=== PATIENT | male | born 1930 | race Caucasian/White ===

== ENCOUNTER 2017-09-12 13:29 | Inpatient (IN) | payer BC, OTHER ==
[~2017-09-12] VITALS: Ht 167.6 cm; Wt 78.9 kg
[2017-09-12 13:31] VITALS: BP 161/88
[2017-09-12] MEDS ORDERED: ORE25 PO (13:40)
--- NOTE | 2017-09-12 13:50 | NUR ---
87Y/M C/O RETAINING WATER IN BILATERAL LEGS AND ABD FOR 7-8 DAYS. VSS; PATIENT POSITIONED FOR COMFORT; HOB ELEVATED; BEDRAILS UP X1; BED DOWN. ER MD MADE AWARE OF PT STATUS.
--- NOTE | 2017-09-12 14:00 | NUR ---
Patient being evaluated by physician at bedside.
[2017-09-12 14:31] LABS: HEMATOCRIT 39.8 % (36-52); HEMOGLOBIN 12.8 g/dL (12.0-18.0); MEAN CORPUSCULAR HEMOGLOBIN 25 pg (27-31); MEAN CORPUSCULAR HGB CONC 32 g/dL (33-37); MEAN CORPUSCULAR VOLUME 78.4 fL (80-94); PLATELET COUNT (AUTO) 405 K/uL (140-450); RED BLOOD CELL COUNT(AUTO) 5.08 MIL/uL (4.20-6.10); RED CELL DISTRIBUTION WIDTH 17.7 % (11.6-13.7)
[2017-09-12 14:46] LABS: ANION GAP 10.2 (8-16); CARBON DIOXIDE 31.1 mmol/L (21-32); CHLORIDE 102 mmol/L (98-107); GLUCOSE 96 mg/dL (74-106); POTASSIUM 3.3 mmol/L (3.5-5.1); SODIUM SERUM 140 mmol/L (136-145); UREA NITROGEN, BLOOD 18 mg/dL (7-18)
[2017-09-12 14:47] LABS: EOSINOPHILS % (MANUAL) 4 % (0-4); LYMPHOCYTES % (MANUAL) 18 % (20-46); MONOCYTES % (MANUAL) 11 % (5-12)
[2017-09-12 14:52] LABS: ALBUMIN 2.5 g/dL (3.4-5.0); ASPARTATE AMINOTRANSFERASE 51 U/L (15-37); TOTAL BILIRUBIN 0.8 mg/dL (0.0-1.0)
[2017-09-12 15:00] LABS: PROTHROMBIN TIME 12.4 secs (10.8-13.4)
[2017-09-12 15:18] LABS: APPEARANCE,URINE CLEAR (CLEAR); BLOOD, URINE NEGATIVE (NEGATIVE); COLOR,URINE YELLOW (YELLOW); LEUKOCYTE ESTERASE ,URINE NEGATIVE (NEGATIVE); NITRITE, URINE NEGATIVE (NEGATIVE); UGLUCOSE NEGATIVE (NEGATIVE)
[2017-09-12 15:26] LABS: BILIRUBIN,URINE NEGATIVE (NEGATIVE)
[2017-09-12] MEDS ORDERED: ACETAMINOPHEN 325 MG TAB PO PRN (16:40)
[2017-09-12] MEDS ORDERED: ONDANSETRON 4 MG/2 ML VIAL IVP PRN (16:40)
[2017-09-12] MEDS ORDERED: MORPHINE SULFATE 4 MG/ML SYR IVP PRN ×2 (16:40)
--- NOTE | 2017-09-12 17:02 | NUR ---
Patient will be admitted to care of dr evans. Admited to med surg . Will go to room 113. Belongings list completed. Report to [facility].
--- NOTE | 2017-09-12 17:15 | NUR ---
RECEIVED PT ON UNIT VIA [facility]. PT IS AAOX4, AMBULATORY, PT HAS IV ON THE LEFT FA, PATENT, INTACT, FLUSHING WELL, NO S/S OF RESPIRATORY DISTRESS OR DISCOMFORT NOTED, PT HAS BILATERAL LOWER EXT. NON PITTING EDEMA, COLOSTOMY BAG ON LEFT LOWER QUADRANT, ERYTHEMA NOTED UNDER THE COLOSTOMY BAG, ORIENTED PT TO ROOM, DISCUSSED PLAN OF CARE WITH PT, PT VERBALIZED UNDERSTANDING, SAFETY/FALL PRECAUTIONS ARE IN PLACE, CALL LIGHT IS WITHIN REACH, WILL CONTINUE TO MONITOR.
[2017-09-12 17:20] VITALS: BP 115/67
--- NOTE | 2017-09-12 19:07 | NUR ---
ENDORSED PT TO ADMINISTRATIVE ASSISTANT COORDINATOR NURSE FOR CONTINUITY OF CARE. PT STABLE AT THIS TIME.
--- NOTE | 2017-09-12 19:08 | NUR ---
RECD. RESTING IN BED, AWAKE, A/OX4. JORDANIAN SPEAKING BUT ABLE TO UNDERSTAND AND SPEAK SOME KHMER. RESPIRATION EVEN AND UNLABORED. NOTED SKIN TEAR ON THE RIGHT FOREARM. IV SALINE LOCK G 20 AT THE LEFT AC G20, PATENT AND INTACT. ABDOMEN MODERATE DISTENDED, WITH POSITIVE BOWEL SOUNDS ON ALL QUADRANTS. COLOSTOMY BAG ON THE LEFT LOWER QUADRANT, WITH GAS AND NO STOOL NOTED. SAFETY MEASURES ENFORCED. BED ON ALARM. INSTRUCTED TO CALL NURSE WHEN NEEDING HELP. CALL LIGHT IN REACH.
--- NOTE | 2017-09-12 19:08 | NUR ---
Patient's Plan of Care was discussed and reviewed with CHASE: NIRU
[2017-09-12 20:00] VITALS: BP 126/62
[2017-09-12] MEDS ORDERED: POTASSIUM CHLORIDE 10 MEQ TABER PO SCH (21:00)
--- NOTE | 2017-09-12 21:27 | NUR ---
K LEVEL, 3.3. MEDICATED WITH K DUR 40 MEQ ORDERED.
--- NOTE | 2017-09-12 21:45 | NUR ---
CLEANSE SKIN TEAR WITH NS, PAT DRY WITH GAUZE, APPLIED TRANSPARENT DRESSING. MADE PATIENT COMFORTABLE IN BED, WITH PILLOWS AND A WARM BLANKET.
--- NOTE | 2017-09-12 22:30 | NUR ---
SLEEPING COMFORTABLY IN BED.
[2017-09-13] VITALS: BP 128/69
--- NOTE | 2017-09-13 | NUR ---
STILL SLEEPING COMFORTABLY,NO COMPLAINT OF PAIN, 0/10.
[2017-09-13 04:00] VITALS: BP 110/68
--- NOTE | 2017-09-13 04:00 | NUR ---
VS STABLE. AMBULATED TWICE TO BR TO VOID, GAIT STEADY.
--- NOTE | 2017-09-13 06:00 | NUR ---
APPLIED BILATERAL LEG SEQUENTIALS.
[2017-09-13 06:54] LABS: BASOPHILS # (AUTO) 0.1 K/uL (0.00-0.22); BASOPHILS % (AUTO) 0.8 % (0.0-2.0); EOSINOPHILS # (AUTO) 0.4 K/uL (0-0.4); EOSINOPHILS % (AUTO) 4.8 % (0.0-4.0); HEMATOCRIT 37.4 % (36-52); LYMPHOCYTES % (AUTO) 12.4 % (20.5-51.1); MEAN CORPUSCULAR HEMOGLOBIN 25 pg (27-31); MEAN CORPUSCULAR HGB CONC 32 g/dL (33-37); MEAN CORPUSCULAR VOLUME 78.9 fL (80-94); MONOCYTES # (AUTO) 1.2 K/uL (0.8-1.0); MONOCYTES % (AUTO) 14.6 % (1.7-9.3); NEUTROPHILS # (AUTO) 5.7 K/uL (1.8-7.7); NEUTROPHILS % (AUTO) 67.4 % (42.2-75.2); PLATELET COUNT (AUTO) 371 K/uL (140-450); RED BLOOD CELL COUNT(AUTO) 4.75 MIL/uL (4.20-6.10); RED CELL DISTRIBUTION WIDTH 17.7 % (11.6-13.7); WHITE BLOOD COUNT (AUTO) 8.4 K/uL (4.8-10.8)
[2017-09-13 07:22] LABS: ALBUMIN 2.2 g/dL (3.4-5.0); ANION GAP 9.5 (8-16); ASPARTATE AMINOTRANSFERASE 51 U/L (15-37); CARBON DIOXIDE 30.2 mmol/L (21-32); CHLORIDE 104 mmol/L (98-107); CREATININE 0.8 mg/dL (0.7-1.3); GLUCOSE 96 mg/dL (74-106); POTASSIUM 3.7 mmol/L (3.5-5.1); SODIUM SERUM 140 mmol/L (136-145); TOTAL BILIRUBIN 0.7 mg/dL (0.0-1.0); UREA NITROGEN, BLOOD 17 mg/dL (7-18)
--- NOTE | 2017-09-13 07:59 | NUR ---
Patient's Plan of Care was discussed and reviewed with CHASE: HAIDER.
[2017-09-13 08:00] VITALS: BP 152/68
--- NOTE | 2017-09-13 08:00 | NUR ---
PATIENT IN BED RESTING QUIETLY. VITAL SIGNS TAKEN AND ARE WNL. NO C/O AT THIS TIME.
--- NOTE | 2017-09-13 09:06 | NUR ---
PATIENT HAS BEEN SCREENED AND CATEGORIZED MODERATE NUTRITION RISK. PATIENT WILL BE SEEN WITHIN 3-5 DAYS OF ADMISSION. 09/15/17 - 09/17/[address]
[2017-09-13] MEDS: HYDROCHLOROTHIAZIDE 25 MG TAB PO SCH (09:31)
--- NOTE | 2017-09-13 11:00 | NUR ---
PATIENT HAS FAMILY MEMBER AT BEDSIDE. PATIENT DENIES PAIN AT THIS TIME.
--- NOTE | 2017-09-13 13:00 | NUR ---
FAMILY MEMBER CONTINUES TO VISIT AT BEDSIDE. PATIENT DENIES ANY PAIN OR DISCOMFORT.
--- NOTE | 2017-09-13 14:12 | NUR ---
FAXED INITIAL REVIEW TO [facility] [phone] PHONE [phone] [facility] [phone] PHONE [phone] X PALAK Parks
[2017-09-13 16:00] VITALS: BP 125/80
--- NOTE | 2017-09-13 16:00 | NUR ---
VITAL SIGNS WITHIN NORMAL LIMITS. NO S/S OF RESPIRATORY DISTRESS. FAMILY CONTINUES AT BEDSIDE.
--- NOTE | 2017-09-13 18:43 | NUR ---
US GUIDED PARACENTESIS SCHEDULED FOR 09/14/2017 @ 1100.
--- NOTE | 2017-09-13 19:30 | NUR ---
ASSUMED CARE OF PATIENT, AWAKE, ALERT AND ORIENTED. NO COMPLAINS. CALL LIGHT WITHIN REACH.
--- NOTE | 2017-09-13 20:00 | NUR ---
PLAN OF CARE DISCUSSED WITH PATIENT AND FAMILY MEMBER, VERBALIZED UNDERSTANDING WELL. CARE BOARD UPDATE. CALL LIGHT WITHIN REACH.
[2017-09-13 23:38] VITALS: BP 125/59
--- NOTE | 2017-09-13 23:55 | NUR ---
SLEEPING WELL, EASILY AROUSABLE. VITAL SIGNS STABLE. AFEBRILE. CALL LIGHT WITHIN REACH.
[2017-09-14 07:10] LABS: BASOPHILS # (AUTO) 0.1 K/uL (0.00-0.22); BASOPHILS % (AUTO) 0.8 % (0.0-2.0); EOSINOPHILS # (AUTO) 0.4 K/uL (0-0.4); EOSINOPHILS % (AUTO) 4.5 % (0.0-4.0); HEMATOCRIT 35.4 % (36-52); HEMOGLOBIN 11.3 g/dL (12.0-18.0); LYMPHOCYTES # (AUTO) 0.9 K/uL (2.0-11.5); LYMPHOCYTES % (AUTO) 11.5 % (20.5-51.1); MEAN CORPUSCULAR HEMOGLOBIN 25 pg (27-31); MEAN CORPUSCULAR HGB CONC 32 g/dL (33-37); MEAN CORPUSCULAR VOLUME 78.6 fL (80-94); MONOCYTES % (AUTO) 12.7 % (1.7-9.3); NEUTROPHILS # (AUTO) 5.6 K/uL (1.8-7.7); NEUTROPHILS % (AUTO) 70.5 % (42.2-75.2); PLATELET COUNT (AUTO) 365 K/uL (140-450); RED CELL DISTRIBUTION WIDTH 17.2 % (11.6-13.7)
--- NOTE | 2017-09-14 07:28 | NUR ---
ENDORSED CARE AT BEDSIDE WITH ERICA HINES, PATIENT IN STABLE CONDITION.
--- NOTE | 2017-09-14 07:45 | NUR ---
REPORT RECEIVED FROM MEDICINE AIDE. PT APPEARS TO BE IN NO DISTRESS. COLOSTOMY INTACT. SKIN INTACT. PT IS NOT IN PAIN. WILL CONTINUE TO MONITOR.
[2017-09-14 07:59] LABS: ANION GAP 7.5 (8-16); ASPARTATE AMINOTRANSFERASE 44 U/L (15-37); CARBON DIOXIDE 31.1 mmol/L (21-32); CHLORIDE 103 mmol/L (98-107); CREATININE 0.9 mg/dL (0.7-1.3); GLUCOSE 91 mg/dL (74-106); POTASSIUM 3.6 mmol/L (3.5-5.1); SODIUM SERUM 138 mmol/L (136-145); TOTAL BILIRUBIN 0.5 mg/dL (0.0-1.0); UREA NITROGEN, BLOOD 16 mg/dL (7-18)
[2017-09-14 08:00] VITALS: BP 128/73
[2017-09-14] MEDS: HYDROCHLOROTHIAZIDE 25 MG TAB PO SCH (08:32)
--- NOTE | 2017-09-14 08:40 | NUR ---
MORNING MEDS GIVEN. PT TOLERATED WELL. PT WANTS TO SHOWER. PHYSICAL THERAPY AT BEDSIDE. WILL ASSIST WITH SHOWER WHEN CLEARED BY PT.
[2017-09-14] MEDS ORDERED: FUROSEMIDE 20 MG/2 ML VIAL IVP SCH (09:00)
[2017-09-14 10:51] VITALS: BP 147/80
--- NOTE | 2017-09-14 11:02 | NUR ---
DR MENDOZA AT BEDSIDE FOR ULTRASOUND GUIDED PARACENTHESIS
[2017-09-14 11:40] VITALS: BP 128/80
--- NOTE | 2017-09-14 11:40 | NUR ---
PARACENTESIS COMPLETED. 3300ML TAKEN OUT. SPECIMEN SENT TO LAB. PT TOLERATED WELL. VITALS STABLE. AT BEDSIDE. WILL CONTINUE TO MONITOR.
--- NOTE | 2017-09-14 13:58 | NUR ---
PT IS LAYING IN BED WATCHING TV. IS AT BEDSIDE. PT IS NOT IN ANY DISTRESS. WILL CONTINUE TO MONITOR.
--- NOTE | 2017-09-14 14:45 | NUR ---
DISCHARGE INSTRUCTION GIVEN AND EXPLAINED TO PT AND , PT VERBALIZED FULLL UNDERSTANDING, IV DC'D, CATH TIP INTACT, BLEEDING CONTROLLED, PT UP OUT OF BED WITHOUT PROBLEM, AMBULATES WITH STEADY GAIT, DC HOME NOW WITH . Addendum: 09/14/17 at 1724 by Rosa Barksdale RN PT WAS DISCHARGED AT 1544
--- NOTE | 2017-09-14 15:22 | NUR ---
CM NOTE FAXED INITIAL REVIEW TO [facility] [phone] PHONE [phone] FAXED INITIAL REVIEW TO [facility] ([facility]) [phone] PHONE [phone]
--- NOTE | 2017-09-14 15:38 | NUR ---
09/14/17 RD INITIAL ASSESSMENT COMPLETED PLEASE REFER TO NUTRITION ASSESSMENT UNDER CARE ACTIVITY FOR ESTIMATED NUTRITIONAL NEEDS. 1. CONTINUE NA 2G DIET TOLERATED 2. PROVIDED PT AND PT FAMILY WITH NA 2G DIET EDUCATION 3. RD TO FOLLOW-UP 5-7 DAYS, LOW RISK ALAN EPPS, ESSENCE
== END 2017-09-14 15:45 | disposition home or self-care (01) | DRG 374 ==
LOC: MED 13:29 → MTU 16:41
PROVIDERS: ADMIT Hospitalist; ATTEND Hospitalist
PROC: 0W9G3ZZ Drainage of Peritoneal Cavity, Percutaneous Approach (ICD-10-PCS; principal; 2017-09-14)
DX: C18.9 Malignant neoplasm of colon, unspecified (principal); E43 Unspecified severe protein-calorie malnutrition; R18.0 Malignant ascites; C78.00 Secondary malignant neoplasm of unspecified lung; E88.09 Other disorders of plasma-protein metabolism, not elsewhere classified; Z79.899 Other long term (current) drug therapy; Z90.49 Acquired absence of other specified parts of digestive tract; Z93.3 Colostomy status; Z87.891 Personal history of nicotine dependence
CPT/HCPCS: 36415; 49083; 71045; 76705; 80053; 81003; 82945; 83605; 84157; 84484; 85025; 85610; 85730; 87040; 87070; 87075; 87081; 87205; 89051; 93005; 97140; 99285; J1940; J2001; Q0092

== ENCOUNTER 2017-10-06 11:38 | Inpatient (IN) | payer OTHER ==
[~2017-10-06] VITALS: Ht 167.6 cm; Wt 77.5 kg
[~2017-10-06 11:38] MED LIST: ORE25 PO
[2017-10-06 11:50] VITALS: BP 137/81
--- NOTE | 2017-10-06 11:52 | NUR ---
PT WHEEL CHAIR ASSISTED TO BED 7
--- NOTE | 2017-10-06 11:55 | NUR ---
87Y/M BIB FAMILY WITH C/O ABDOMINAL FLUID RETENTION X 2 WKS; COLOSTOMY IN PLACE X 11 MONTHS D/T COLON CA; DENIES NVD OR PAIN. AAOX4 WITH EVEN AND STEADY GAIT;VSS; PATIENT POSITIONED FOR COMFORT; HOB ELEVATED; BEDRAILS UP X2; BED DOWN. ER MD MADE AWARE OF PT STATUS.
--- NOTE | 2017-10-06 13:00 | NUR ---
Patient appears to be resting comfortably in bed. Vital Signs within normal limits.
[2017-10-06] MEDS ORDERED: FUROSEMIDE 40 MG/4 ML VIAL IVP ONE (13:10)
[2017-10-06 14:22] LABS: BASOPHILS # (AUTO) 0.1 K/uL (0.00-0.22); BASOPHILS % (AUTO) 0.7 % (0.0-2.0); EOSINOPHILS # (AUTO) 0.1 K/uL (0-0.4); EOSINOPHILS % (AUTO) 0.8 % (0.0-4.0); HEMATOCRIT 42.9 % (36-52); HEMOGLOBIN 13.5 g/dL (12.0-18.0); LYMPHOCYTES # (AUTO) 0.9 K/uL (2.0-11.5); LYMPHOCYTES % (AUTO) 6.6 % (20.5-51.1); MEAN CORPUSCULAR HEMOGLOBIN 24 pg (27-31); MEAN CORPUSCULAR HGB CONC 31 g/dL (33-37); MEAN CORPUSCULAR VOLUME 77.4 fL (80-94); MONOCYTES # (AUTO) 1.2 K/uL (0.8-1.0); MONOCYTES % (AUTO) 8.7 % (1.7-9.3); NEUTROPHILS # (AUTO) 11.8 K/uL (1.8-7.7); NEUTROPHILS % (AUTO) 83.2 % (42.2-75.2); PLATELET COUNT (AUTO) 458 K/uL (140-450); RED BLOOD CELL COUNT(AUTO) 5.55 MIL/uL (4.20-6.10); WHITE BLOOD COUNT (AUTO) 14.1 K/uL (4.8-10.8)
[2017-10-06 14:37] LABS: APPEARANCE,URINE CLEAR (CLEAR); BILIRUBIN,URINE NEGATIVE (NEGATIVE); BLOOD, URINE NEGATIVE (NEGATIVE); COLOR,URINE YELLOW (YELLOW); LEUKOCYTE ESTERASE ,URINE NEGATIVE (NEGATIVE); NITRITE, URINE NEGATIVE (NEGATIVE); UGLUCOSE NEGATIVE (NEGATIVE)
[2017-10-06 14:39] LABS: ANION GAP 10.1 (8-16); CARBON DIOXIDE 30.7 mmol/L (21-32); CHLORIDE 100 mmol/L (98-107); CREATININE 1.2 mg/dL (0.7-1.3); GLUCOSE 95 mg/dL (74-106); POTASSIUM 3.8 mmol/L (3.5-5.1); SODIUM SERUM 137 mmol/L (136-145); UREA NITROGEN, BLOOD 21 mg/dL (7-18)
[2017-10-06 14:45] LABS: ALBUMIN 2.3 g/dL (3.4-5.0); ASPARTATE AMINOTRANSFERASE 48 U/L (15-37); LIPASE 129 U/L (73-393); TOTAL BILIRUBIN 0.6 mg/dL (0.0-1.0)
[2017-10-06] MEDS ORDERED: LORazepam 2 MG/ML VIAL IVP PRN (15:00)
[2017-10-06] MEDS ORDERED: HYDROcodone/APAP 5/325 MG 1 TAB TAB PO PRN (15:00)
[2017-10-06] MEDS ORDERED: ACETAMINOPHEN 325 MG TAB PO PRN (15:00)
[2017-10-06] MEDS ORDERED: ONDANSETRON 4 MG/2 ML VIAL IVP PRN (15:00)
--- NOTE | 2017-10-06 15:30 | NUR ---
PATIENT WAS TRANSFERRED FROM ER. REPORT WAS GIVEN AT BEDSIDE. 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 PATIENT AWAKE, ALERT. RESPIRATION EVEN, UNLABOR ON ROOM AIR. SKIN DRY AND WARM. IV PATENT AND INTACT. COLOSTOMY BAG IS CLEAN AND INTACT. DENIED PAIN, SOB, N/V AT THIS TIME. PATIENT WAS ORIENTED WITH ROOM, STAFF, AND CALL LIGHT. PLAN OF CARE WAS DISCUSSED WITH PATIENT. BED AT LOW POSITION, SIDE RAILS UP. CALL LIGHT WITHIN REACH
--- NOTE | 2017-10-06 15:35 | NUR ---
Patient will be admitted to care of dr. briscoe. Admited to med surg. Will go to room 123 a. Belongings list completed. Report to [facility].
[2017-10-06 15:40] VITALS: BP 129/77
[2017-10-06] MEDS ORDERED: ALBUMIN HUMAN 25% 100 ML IV SCH (16:00)
--- NOTE | 2017-10-06 17:44 | NUR ---
PATIENT AWAKE, ALERT. RESPIRATION EVEN, UNLABOR ON ROOM AIR. NO DISTRESS NOTED AT HIS TIME. CALL LIGHT WITHIN REACH. FAMILY AT BEDSIDE
--- NOTE | 2017-10-06 19:18 | NUR ---
ENDORSEMENT GIVEN TO THE BODY AND FENDER MECHANIC APPRENTICE NURSE. PATIENT IS STABLE AT THIS TIME
--- NOTE | 2017-10-06 19:19 | NUR ---
RECEIVED REPORT FROM DAY SHIFT NURSE PETTY RN, PT STABLE, NO DISTRESS NOTED, IV TO RAC 20G RUNNING ALBUMIN @ 50ML/HR, INFUSING WELL, PT ON ROOM AIR NO SOB, FAMILY BY BEDSIDE, INITIAL ASSESSMENT DONE, ALL SAFETY PRECAUTION MET, WILL CONTINUE TO MONITOR.
--- NOTE | 2017-10-06 21:01 | NUR ---
CHECKED ON PT, PT RESTING ON BED, DENIES ANY PAIN, NO DISTRESS NOTED, CALL LIGHT WITHIN REACH, WILL CONTINUE TO MONITOR.
--- NOTE | 2017-10-06 23:10 | NUR ---
CHECKED ON PT, PT SLEEPING, NO DISTRESS NOTED, CALL LIGHT WITHIN REACH, WILL CONTINUE TO MONITOR.
[2017-10-06 23:48] VITALS: BP 124/75
--- NOTE | 2017-10-07 02:00 | NUR ---
CHECKED ON PT, PT SLEEPING, NO DISTRESS NOTED, CALL LIGHT WITHIN REACH, WILL CONTINUE TO MONITOR.
--- NOTE | 2017-10-07 03:49 | NUR ---
PT SLEEPING, EASY TO AROUSE, STATED HAVING NO PAIN OR DISCOMFORT, NO DISTRESS NOTED, CALL LIGHT WITHIN REACH, WILL CONTINUE TO MONITOR.
--- NOTE | 2017-10-07 06:15 | NUR ---
CHECKED ON PT, PT RESTING ON BED, NO DISTRESS NOTED, STATED HAVING NO PAIN OR DISCOMFORT, CALL LIGHT WITHIN REACH, WILL CONTINUE TO MONITOR.
[2017-10-07 07:12] LABS: BASOPHILS # (AUTO) 0.1 K/uL (0.00-0.22); BASOPHILS % (AUTO) 0.8 % (0.0-2.0); EOSINOPHILS # (AUTO) 0.2 K/uL (0-0.4); HEMATOCRIT 38.6 % (36-52); HEMOGLOBIN 12.4 g/dL (12.0-18.0); LYMPHOCYTES # (AUTO) 0.8 K/uL (2.0-11.5); LYMPHOCYTES % (AUTO) 7.9 % (20.5-51.1); MEAN CORPUSCULAR HEMOGLOBIN 25 pg (27-31); MEAN CORPUSCULAR HGB CONC 32 g/dL (33-37); MEAN CORPUSCULAR VOLUME 76.9 fL (80-94); MONOCYTES % (AUTO) 9.5 % (1.7-9.3); NEUTROPHILS % (AUTO) 79.8 % (42.2-75.2); PLATELET COUNT (AUTO) 421 K/uL (140-450); RED BLOOD CELL COUNT(AUTO) 5.02 MIL/uL (4.20-6.10); RED CELL DISTRIBUTION WIDTH 17.1 % (11.6-13.7); WHITE BLOOD COUNT (AUTO) 10.1 K/uL (4.8-10.8)
--- NOTE | 2017-10-07 07:16 | NUR ---
ENDORSED PLAN OF CARE TO DAY SHIFT NURSE BEATRICE RN, PT STABLE, NO DISTRESS NOTED, CALL LIGHT WITHIN REACH
--- NOTE | 2017-10-07 07:16 | NUR ---
RECEIVED REPORT FROM PHARMACY CONSULTANT NURSE AT BEDSIDE. PATIENT HAS A 20G RIGHT AC SALINE LOCKED. PT IS ASLEEP BUT AROUSABLE TO NAME AT THIS TIME. PT ON ROOM AIR AT THIS TIME WITH NO DISTRESS NOTED. PATIENT DOES NOT COMPLAIN OF ANY PAIN. UPDATED BOARD IN PATIENT'S ROOM. APPROPRIATE SIGNS PLACED OUTSIDE OF PATIENT'S ROOM. WILL CONTINUE TO MONITOR PATIENT.
[2017-10-07 07:26] LABS: ALBUMIN 2.4 g/dL (3.4-5.0); ANION GAP 10.4 (8-16); ASPARTATE AMINOTRANSFERASE 37 U/L (15-37); CARBON DIOXIDE 30.1 mmol/L (21-32); CHLORIDE 101 mmol/L (98-107); CREATININE 1.2 mg/dL (0.7-1.3); GLUCOSE 94 mg/dL (74-106); POTASSIUM 3.5 mmol/L (3.5-5.1); SODIUM SERUM 138 mmol/L (136-145); TOTAL BILIRUBIN 0.6 mg/dL (0.0-1.0); UREA NITROGEN, BLOOD 22 mg/dL (7-18)
[2017-10-07 07:52] LABS: PROTHROMBIN TIME 12.2 secs (10.8-13.4)
[2017-10-07 08:03] VITALS: BP 122/70
[2017-10-07] MEDS ORDERED: HYDROCHLOROTHIAZIDE 25 MG TAB PO SCH (09:00)
--- NOTE | 2017-10-07 12:27 | NUR ---
PATIENT RESTING IN BED AT THIS TIME. NO COMPLAINTS OF PAIN. AWAITING TO COME. FAMILY MEMBER AT BEDSIDE. WILL CONTINUE TO MONITOR PATIENT.
[2017-10-07] MEDS ORDERED: FURO-570 PO (13:06)
[2017-10-07] MEDS ORDERED: SPIR50TA PO (13:06)
--- NOTE | 2017-10-07 14:51 | NUR ---
PATIENT RESTING IN BED AT THIS TIME. NO DISTRESS NOTED. WILL CONTINUE TO MONITOR PATIENT.
--- NOTE | 2017-10-07 16:52 | NUR ---
FINISHED PARACENTESIS PROCEDURE. DRAINED 5200 ML FROM PATIENT. PATIENT'S BLOOD PRESSURE IS STABLE AT 120/78, 88 HR. TEMPERATURE IS 98.5, RR IS 16, O2 SATURATION IS 97% ON ROOM AIR.
--- NOTE | 2017-10-07 17:32 | NUR ---
TALKED TO DR. CAST REGARDING PATIENT'S PRESCRIPTIONS. PROVIDED PHARMACY OF PATIENT TO . AGREED TO CALL IN PRESCRIPTIONS TO THE PHARMACY.
--- NOTE | 2017-10-07 17:49 | NUR ---
OFFERED TRANSLATING SERVICES TO PATIENT BUT PATIENT DECLINED. PATIENT WANTED TO HAVE HIS SON TRANSLATE FOR HIM. PATIENT UNDERSTOOD ALL DISCHARGE INSTRUCTIONS AND IS AWARE OF PRESCRIPTIONS THAT WERE PHONED IN BY THE DR. CAST. DISCONNECTED PATIENT'S IV LINE WITH CATHETER INTACT. REMOVED PATIENT'S IDENTIFICATION BANDS. PATIENT GATHERED ALL BELONGINGS. PATIENT LEFT VIA WHEELCHAIR WITH ALL BELONGINGS IN STABLE CONDITION.
[2017-10-07 20:15] LABS: GLUCOSE,BODY FLUID 134 mg/dL; LDH,BODY FLUID 119 U/L
[2017-10-07 20:21] LABS: SPECIMENTYPE,BODY FLUID ASCITES
[2017-10-07 20:22] LABS: APPEARANCE,SPUN,BODY FLUID TURBID (CLEAR)
[2017-10-07 20:23] LABS: COLOR,BODY FLUID LT YELLOW (LT YELLOW); RBC, BODY FLUID 425 /cu. mm.; TOTAL VOLUME,BODY FLUID 5200 mL; WBC, BODY FLUID 45 /cu. mm.
[2017-10-08 15:09] LABS: POLYNUCLEAR, BODY FLUID 45 %
--- NOTE | 2017-10-09 14:48 | NUR ---
[id number] RECEIVED A CALL FROM CHELSI AT [facility] [phone] FAX [phone] AND HE REQUESTED THAT CLINICAL INFORMATION BE FAXED. STATED THAT PT HAS BEEN HOSPITALIZED SEVERAL TIMES IN PAST FEW WEEKS DUE TO REQUIRING PARACENTESIS AND HE WILL REFER PT TO PCP TO SCHEDULE OP FOLLOW UP FOR PARACENTESIS RATHER THAN PT GO TO ED OR IP. INFORMATION FAXED PER REQUEST.
--- NOTE | 2017-10-10 11:14 | NUR ---
RECEIVED A CALL FROM FLORY FROM [facility]. FAXED ER REPORT, H&P AND PROGRESS NOTE TO HER AT [phone] PHONE [phone]. NO DISCHARGE SUMMARY
== END 2017-10-07 17:49 | disposition home or self-care (01) | DRG 375 ==
LOC: MED 11:38 → MTU 14:58
PROVIDERS: ADMIT Hospitalist; ATTEND Hospitalist
PROC: 0W9G3ZZ Drainage of Peritoneal Cavity, Percutaneous Approach (ICD-10-PCS; principal; 2017-10-06)
DX: C18.9 Malignant neoplasm of colon, unspecified (principal); R18.0 Malignant ascites; E44.0 Moderate protein-calorie malnutrition; C78.00 Secondary malignant neoplasm of unspecified lung; C78.7 Secondary malignant neoplasm of liver and intrahepatic bile duct; Z93.3 Colostomy status; Z90.49 Acquired absence of other specified parts of digestive tract; Z68.27 Body mass index [BMI] 27.0-27.9, adult
CPT/HCPCS: 36415; 49083; 71045; 76705; 80053; 81003; 82945; 83615; 83690; 83735; 84157; 85025; 85610; 85730; 87070; 87075; 87081; 87205; 89051; 96374; 99285; J0696; J1940; J2001; J7030; J7060; P9046; Q0092